=== PATIENT | female | born 1980 | race Caucasian/White ===

== ENCOUNTER 2016-12-05 08:15 | Emergency (ER) | payer OTHER ==
[2016-12-05 08:25] VITALS: BP 120/68
--- NOTE | 2016-12-05 08:48 | UC ---
Headache HPI - HPI Summary HPI Summary: headaches x 5 days frontal area , + nausea , no cold sx, no radiation of the pain mild photophobia , no change in vision , pain is constant, 5/10 in severity , no improvement with Tylenol - History Of Current Complaint Chief Complaint: UCHeadache Stated Complaint: HEADACHE Time Seen by Provider: 12/05/16 08:18 Hx Obtained From: Patient Hx Last Menstrual Period: 05/03/15 ?: Yes Onset/Duration: Gradual Onset, Lasting Days - 5, Still Present Initially Headache Was: Moderate Currently Pain Is: Moderate Timing: Constant Character: Pressure Location of Headache: Frontal Aggravating Factor: Nothing Allevating Factors: Nothing Associated Signs And Symptoms: Positive: Nausea. Negative: Dizziness, Seizure, Vomiting, Sinus Pressure, Fever, Neck Pain, Neck Stiffness, Decreased LOC, Visual Changes - Allergies/Home Medications Allergies/Adverse Reactions: Allergies Allergy/AdvReac Type Severity Reaction Status Date / Time avoids opioids Allergy See Comment Uncoded 12/21/14 11:03 Home Medications: Home Medications Acetaminophen [Acetaminophen Extra Stren] 2 tab PO Q6H PRN 12/05/16 [History Confirmed 12/05/16] Docosahexaenoic Acid [ Dha] 1 tab PO DAILY 12/05/16 [History Confirmed 12/05/16] PMH/Surg Hx/FS Hx/Imm Hx Previously Healthy: Yes - Surgical History Surgical History: Yes Surgery Procedure, Year, and Place: - Family History Known Family History: Negative: Diabetes - Social History Alcohol Use: None Substance Use Type: None, Other Substance Use Comment - Amount & Last Used: hx of iv drug use Smoking Status (MU): Former Smoker Type: Cigarettes Amount Used/How Often: 1/2 ppd Have You Smoked in the Last Year: Yes When Did the Patient Quit Smoking/Using Tobacco: aug 2016 - Immunization History Most Recent Tetanus Shot: 06/2012 Review of Systems Constitutional: Negative Skin: Negative Eyes: Negative ENT: Negative Respiratory: Negative Neurological: Headache All Other Systems Reviewed And Are Negative: Yes Physical Exam Triage Information Reviewed: Yes Appearance: Well-Appearing, Well-Nourished, Pain Distress Vital Signs: Initial Vital Signs Temp 97.4 F 12/05/16 08:18 Pulse 61 12/05/16 08:18 Resp 14 12/05/16 08:18 BP 120/68 12/05/16 08:18 Pulse Ox 100 12/05/16 08:18 Vital Signs Reviewed: Yes Eyes: Positive: Conjunctiva Clear ENT: Positive: Normal ENT inspection, Hearing grossly normal, Pharynx normal Dental: Positive: Percussion Tenderness @ Neck exam: Normal Neck: Positive: Supple, Nontender, No Lymphadenopathy Respiratory: Positive: Chest non-tender, Lungs clear, Normal breath sounds Cardiovascular: Positive: RRR, No Murmur, Pulses Normal Abdominal Exam: Normal Musculoskeletal Exam: Normal Musculoskeletal: Positive: Strength Intact Neurological Exam: Normal Neurological: Positive: Alert Headache Course/Dx - Differential Dx/Diagnosis Provider Diagnoses: headaches Discharge - Discharge Plan Condition: Stable Disposition: HOME Prescriptions: SUMAtriptan TAB* [Imitrex TAB*] 100 mg PO SEE INSTRUCTIONS #10 tab Patient Education Materials: Acute Headache (ED) Referrals: Bello Fountain PA [Primary Care Provider] - 5 Days
== END 2016-12-05 08:47 | disposition home or self-care (01) ==
LOC: UCCORT 08:15
DX: R51 Headache (principal); R11.0 Nausea
CPT/HCPCS: 99212; G0463

== ENCOUNTER 2017-10-09 08:27 | Emergency (ER) | payer OTHER ==
[2017-10-09 08:45] VITALS: BP 107/80
--- NOTE | 2017-10-09 08:58 | UC ---
Skin Complaint HPI - HPI Summary HPI Summary: CRACKED LIP X 5 WEEKS LESION IS IN THE RIGHT CORNER OF THE MOUTH NOT HEALING, - History of Current Complaint Chief Complaint: UCSkin Time Seen by Provider: 10/09/17 08:28 Stated Complaint: ORAL COMPLAINT Hx Obtained From: Patient Hx Last Menstrual Period: 10/08/17 ?: No Onset/Duration: Gradual Onset, Lasting Weeks - 5, Still Present Timing: Constant Onset Severity: Moderate Current Severity: Moderate Pain Intensity: 2 Location: Other - RIGHT CORNER OF MOUTH Character: Pain, Redness Aggravating Factor(s): Nothing Alleviating Factor(s): Nothing Associated Signs & Symptoms: Positive: Negative - Allergy/Home Medications Allergies/Adverse Reactions: Allergies Allergy/AdvReac Type Severity Reaction Status Date / Time avoids opioids Allergy See Comment Uncoded 12/21/14 11:03 Review of Systems Constitutional: Negative Skin: Negative Eyes: Negative ENT: Negative Respiratory: Negative Cardiovascular: Negative Is Patient Immunocompromised?: No All Other Systems Reviewed And Are Negative: Yes PMH/Surg Hx/FS Hx/Imm Hx - Additional Past Medical History Additional PMH: HEP C Other History Of: Hepatitis C - Surgical History Surgical History: Yes Surgery Procedure, Year, and Place: X2 - Family History Known Family History: Negative: Diabetes - Social History Alcohol Use: None Substance Use Type: None, Other Substance Use Comment - Amount & Last Used: hx of iv drug use Smoking Status (MU): Former Smoker Type: Cigarettes Amount Used/How Often: 1/2 ppd Have You Smoked in the Last Year: Yes When Did the Patient Quit Smoking/Using Tobacco: aug 2016 - Immunization History Most Recent Tetanus Shot: 06/2012 Physical Exam Triage Information Reviewed: Yes Appearance: Well-Appearing, No Pain Distress, Well-Nourished Vital Signs: Initial Vital Signs Temp 98.7 F 10/09/17 08:36 Pulse 66 10/09/17 08:36 Resp 16 10/09/17 08:36 BP 107/80 10/09/17 08:36 Pulse Ox 99 10/09/17 08:36 Vital Signs Reviewed: Yes Eyes: Positive: Conjunctiva Clear ENT: Positive: Normal ENT inspection, Hearing grossly normal, Pharynx normal, Other - ANGULAR CHEILITIS RIGHT SIDE Neck: Positive: Supple, Nontender, No Lymphadenopathy Respiratory: Positive: Chest non-tender, Lungs clear, Normal breath sounds Cardiovascular: Positive: RRR, No Murmur, Pulses Normal Skin Exam: Normal Course/Dx - Diagnoses Provider Diagnoses: ANGULAR CHEILITIS Discharge - Discharge Plan Condition: Stable Disposition: HOME Prescriptions: Nystatin OINT* 1 applic TOPICAL TID #1 tube Referrals: Bello Fountain PA [Primary Care Provider] - 2 Weeks Additional Instructions: ANGULAR CHEILITIS COULD BY CAUSE BY FUNGAL INFECTION USE NYSTATIN 3 X PER DAY FOR THE NEXT 2 WEEKS
== END 2017-10-09 09:00 | disposition home or self-care (01) ==
LOC: UCCORT 08:27
DX: K13.79 Other lesions of oral mucosa (principal); Z87.891 Personal history of nicotine dependence
CPT/HCPCS: 99212; G0463

== ENCOUNTER 2019-02-12 09:56 | Emergency (ER) | payer OTHER ==
[2019-02-12 10:45] VITALS: BP 116/69
[2019-02-12] MEDS ORDERED: Ketorolac *IM* INJ* 60 MG/2 ML VIAL IM ONE (10:59)
[2019-02-12] MEDS ORDERED: Acetaminophen TAB* 325 MG PO ONE (11:00)
[2019-02-12] MEDS ORDERED: Ondansetron ODT TAB* 4 MG PO ONE (11:00)
[2019-02-12] MEDS ORDERED: Metoclopramide TAB* 10 MG PO ONE (11:19)
--- NOTE | 2019-02-12 11:20 | ED ---
Headache - HPI Summary HPI Summary: 38 yr old with the complaint of headache, onset of headache five days ago, and located in the frontal area and also occipital. She has had the exact same headaches in the past, and associated with nausea and light sensitivity. She also has noise sensitivity this time. She denies fever, chills, neck stiffness. She denies change in vision, speech, hearing, swallowing, denies focal weakness, denies numbness. She has no other complaints. The patient has not had runny nose or post nasal drip. She does not feel she has been ill at all this week otherwise. She denies change in vision, speech, hearing, swallowing. Denies focal weakness. Denies change in gait, denies numbness. - History Of Current Complaint Chief Complaint: UCHeadache Stated Complaint: POND x 4 DAYS Time Seen by Provider: 02/12/19 10:46 Hx Last Menstrual Period: 02/06/19 - Allergies/Home Medications Allergies/Adverse Reactions: Allergies Allergy/AdvReac Type Severity Reaction Status Date / Time avoids opioids Allergy See Comment Uncoded 02/12/19 10:33 Home Medications: Home Medications ?Name Iud 02/12/19 [History] Ibuprofen TAB* [Advil TAB*] 200 mg PO Q6H PRN 02/12/19 [History Confirmed ] Loratadine [Claritin 10 MG CAP] 10 mg PO DAILY 02/12/19 [History Confirmed 02/12] Otc Nasal [place] PRN 02/12/19 [History] hydrOXYzine HCL TAB* [Atarax 25 MG TAB*] 25 mg PO TID PRN 02/12/19 [History Confirmed 02/12/19] traZODone TAB* [Desyrel TAB*] 50 mg PO BEDTIME 02/12/19 [History Confirmed 02/12] PMH/Surg Hx/FS Hx/Imm Hx - Surgical History Surgery Procedure, Year, and Place: X2 Infectious Disease History: Yes Infectious Disease History: Reports: Hx Hepatitis - Hep C Denies: Hx Clostridium Difficile, Hx Human Immunodeficiency Virus (HIV), Hx Shingles, Hx Tuberculosis, Traveled Outside the [place] in Last 30 Days - Family History Known Family History: Negative: Diabetes - Social History Occupation: Employed Full-time Alcohol Use: None Substance Use Type: Reports: None Substance Use Comment - Amount & Last Used: hx of iv drug use Smoking Status (MU): Former Smoker Type: Cigarettes Amount Used/How Often: 1/2 ppd Have You Smoked in the Last Year: Yes Review of Systems Constitutional: Negative Positive: Headache. Negative: Weakness, Paresthesia, Numbness, Syncope, Slurred Speech All Other Systems Reviewed And Are Negative: Yes Physical Exam Triage Information Reviewed: Yes Vital Signs On Initial Exam: Initial Vitals Temp Pulse Resp BP Pulse Ox 97.8 F 56 16 116/69 100 02/12/19 10:39 02/12/19 10:39 02/12/19 10:39 02/12/19 10:39 02/12/19 10:39 Vital Signs Reviewed: Yes Appearance: Positive: Well-Appearing, No Pain Distress Skin: Positive: Warm, Skin Color Reflects Adequate Perfusion Head/Face: Positive: Normal Head/Face Inspection Eyes: Positive: EOMI, [place] ENT: Positive: Normal ENT inspection, Pharynx normal, TMs normal. Negative: Nasal congestion, Nasal drainage, Sinus tenderness Neck: Positive: Nontender Respiratory/Lung Sounds: Positive: Clear to Auscultation, Breath Sounds Present Cardiovascular: Positive: RRR. Negative: Murmur Abdomen Description: Negative: Distended Musculoskeletal: Positive: Strength/ROM Intact Neurological: Positive: Sensory/Motor Intact, Alert, Oriented to Person Place, Time, CN Intact II-III, Normal Gait, Finger to Nose - normal, Speech Normal Psychiatric: Positive: Normal Diagnostics - Vital Signs Vital Signs Temp Pulse Resp BP Pulse Ox 02/12/19 10:39 97.8 F 56 16 116/69 100 - Laboratory Lab Statement: Any lab studies that have been ordered have been reviewed, and results considered in the medical decision making process. Re-Evaluation - Re-Evaluation First Eval Re-Evaluation Time: 12:50 Change: Improved - 5-6/10 pain now. Headache Course/Dx - Course Course Of Treatment: 38 yr old with migraine and better after meds. DC home. FU with PMD. - Diagnoses Provider Diagnoses: Migraine headache Discharge - Sign-Out/Discharge Documenting (check all that apply): Patient Departure All imaging exams completed and their final reports reviewed: No Studies - Discharge Plan Condition: Good Disposition: HOME Patient Education Materials: Acute Headache (ED) Referrals: Tanesha Luther MD [Primary Care Provider] - 2 Days - Billing Disposition and Condition Condition: GOOD Disposition: Home
[2019-02-12] MEDS ORDERED: Ketorolac INJ* 30 MG/ML 1 ML VIAL IM ONE (12:38)
== END 2019-02-12 13:11 | disposition home or self-care (01) ==
LOC: UCCORT 09:56
DX: G43.909 Migraine, unspecified, not intractable, without status migrainosus (principal); Z87.891 Personal history of nicotine dependence
CPT/HCPCS: 96372; 99212; A9270-GY; G0463; J1885